=== PATIENT | male | born 1990 | race Caucasian/White ===

== ENCOUNTER 2017-09-09 12:24 | Emergency (ER) | payer BC ==
[2017-09-09] MEDS ORDERED: diphenhydrAMINE 50 MG Cap PO ONE (12:37)
[2017-09-09] MEDS ORDERED: Famotidine 20 MG Tab PO ONE (12:37)
[2017-09-09] MEDS ORDERED: predniSONE 20 MG Tab PO ONE (12:37)
--- NOTE | 2017-09-09 12:39 | EDM.PDOC ---
ED HPI GENERAL MEDICAL PROBLEM - General Chief Complaint: Allergic Reaction Stated Complaint: ALLERGIC RX TO SHELL FISH Time Seen by Provider: 09/09/17 12:34 Source of Information: Reports: Patient History Limitations: Reports: No Limitations - History of Present Illness INITIAL COMMENTS - FREE TEXT/NARRATIVE: Patient has allergic reaction to shellfish. He was eating at a [employer] restaurant and ate shrimp that was accidentally in his noodles. Patient noticed this when chewing it and spit out immediately. Since then he's been experiencing some numbness and tingling to his tongue and also posterior pharynx. His throat is itchy. He denies any difficult swallowing, SOB, nausea/ vomiting, abdominal pain, rashes anywhere, dizziness, chest pain, or any additional complaints. - Related Data Allergies Allergy/AdvReac Type Severity Reaction Status Date / Time shellfish derived Allergy Anaphylactic Verified 09/09/17 14:13 Shock Home Meds: Home Meds Multivitamin [Multivitamins] 1 cap PO DAILY 10/31/15 [History] EPINEPHrine [Epipen 2-Zach] 0.3 mg IJ ASDIRECTED PRN #2 pen 09/09/17 [Rx] Prednisone [IMW: predniSONE] 20 mg PO WITHBREAKFAST #8 tab 09/09/17 [Rx] Past Medical History HEENT History: Reports: Impaired Vision Other HEENT History: wears glasses - Past Surgical History Musculoskeletal Surgical History: Reports: Other (See Below) Social & Family History - Tobacco Use Smoking Status *Q: Current Every Day Smoker Years of Tobacco use: 13 Packs/Tins Daily: 0.5 - Recreational Drug Use Recreational Drug Use: No ED ROS ALLERGIC REACTION - Review of Systems Review Of Systems: ROS reveals no pertinent complaints other than HPI. ED EXAM GENERAL NO PERIP PULSE - Physical Exam Exam: See Below Exam Limited By: No Limitations General Appearance: Alert, WD/WN, No Apparent Distress Ears: Hearing Grossly Normal Nose: Normal Inspection Throat/Mouth: Normal Inspection, Normal Oropharynx, Normal Voice, No Airway Compromise Head: Atraumatic, Normocephalic Neck: Normal Inspection, Supple, Non-Tender, Full Range of Motion Respiratory/Chest: No Respiratory Distress, Lungs Clear, Normal Breath Sounds, No Accessory Muscle Use, Chest Non-Tender Cardiovascular: Normal Peripheral Pulses, Regular Rate, Rhythm GI/Abdominal: Normal Bowel Sounds, Soft, Non-Tender, No Organomegaly, No Distention Extremities: Normal Inspection Neurological: Alert, Oriented, CN II-XII Intact, Normal Cognition Psychiatric: Normal Affect, Normal Mood Skin Exam: Warm, Dry, Intact, Normal Color, No Rash Course - Vital Signs Last Recorded V/S: Last Vital Signs Temp 98.8 F 09/09/17 12:33 Pulse 82 09/09/17 14:07 Resp 16 09/09/17 14:07 BP 127/78 09/09/17 14:07 Pulse Ox 96 09/09/17 14:07 - Orders/Labs/Meds Meds: Medications Discontinued Medications Generic Name Dose Route Start Last Admin Trade Name Freq PRN Reason Stop Dose Admin Diphenhydramine HCl 50 mg 09/09/17 12:37 09/09/17 12:43 Benadryl PO 09/09/17 12:38 50 mg ONETIME ONE Administration Famotidine 20 mg 09/09/17 12:37 09/09/17 12:43 Pepcid PO 09/09/17 12:38 20 mg ONETIME ONE Administration Prednisone 40 mg 09/09/17 12:37 09/09/17 12:43 Prednisone PO 09/09/17 12:38 40 mg ONETIME ONE Administration - Re-Assessments/Exams Free Text/Narrative Re-Assessment/Exam: Order Benadryl 50 mg by mouth, Pepcid 20 mg by mouth, and prednisone 40 mg by mouth. 09/09/17 13:37 Reassessment, patient is feeling much better. No allergic type symptoms present. Vital signs are stable. SPO2 within normal limits. Patient's in no respiratory distress. Denies any difficulties with swallowing. No rash present. Departure - Departure Time of Disposition: 13:39 Disposition: Home, Self-Care 01 Condition: Good Clinical Impression: Allergic reaction to shellfish - Discharge Information Prescriptions: EPINEPHrine [Epipen 2-Zach] 0.3 mg IJ ASDIRECTED PRN #2 pen PRN Reason: Other Prednisone [IMW: predniSONE] 20 mg PO WITHBREAKFAST #8 tab Instructions: Seafood Allergy Referrals: PCP,None [Primary Care Provider] - Forms: ED Department Discharge Additional Instructions: Take prednisone 40 mg every day for the next 4 days. Take Pepcid 40 mg every day as well for the next 4 days. May utilize Benadryl 25-50 mg every 6 hours as needed for itchiness to your throat or development of hives. If he should develop anaphylactic symptoms please utilize the EpiPen as directed. Return to the ED if you develop any new or worsening symptoms. Refrain from contact from shellfish. Suggest carrying the EpiPen with you at all times.
[2017-09-09 14:08] VITALS: BP 127/78
== END 2017-09-09 14:10 | disposition home or self-care (01) ==
LOC: JD.ED 12:24
DX: T78.1XXA Other adverse food reactions, not elsewhere classified, initial encounter (principal); J39.2 Other diseases of pharynx; F17.210 Nicotine dependence, cigarettes, uncomplicated; Z91.013 Allergy to seafood
CPT/HCPCS: 99283; A9270